=== PATIENT | female | born 1935 | race African-American/Black ===

== ENCOUNTER 2017-11-17 05:25 | Inpatient (IN) | payer OTHER ==
[2017-10-29 08:54] LABS: URINE BILIRUBIN NEGATIVE (Negative); URINE BLOOD NEGATIVE (Negative); URINE CLARITY CLEAR; URINE COLOR YELLOW; URINE GLUCOSE-RANDOM* NEGATIVE (Negative); URINE KETONES NEGATIVE (Negative); URINE NITRITE-REFLEX NEGATIVE (Negative); URINE PROTEIN (DIPSTICK) NEGATIVE (Negative); URINE UROBILINOGEN 0.2 E.U./dl (0.2-1.0)
[2017-10-29 08:56] LABS: URINE LEUKOCYTES-REFLEX 1+ (Negative)
[2017-10-29 08:59] LABS: HEMATOCRIT 36.5 % (37.0-47.0); HEMOGLOBIN 11.5 gm/dL (12.0-15.0); MCHC 31.6 g/dL (28.0-37.0); MCV 79.2 fL (80.0-100.0); RBC 4.61 mil/uL (4.20-5.00); RDW 15.3 % (10.5-14.5); WBC 6.6 thou/uL (4.0-11.0)
[2017-10-29 09:07] LABS: PROTIME 10.2 Seconds (9.3-11.4)
[2017-10-29 09:09] LABS: BACTERIA-REFLEX 1-9 Few /HPF (None Seen); CASTS None Seen /LPF (None Seen); CRYSTALS None Seen /LPF (None Seen); SQUAMOUS 0-3 Few /LPF (0-3); TRANSITIONAL EPITHEL CELL 0-3 Few /LPF (None Seen); URINE RBC None Seen /HPF (0-2); URINE WBC-REFLEX 0-5 Rare /HPF (0-5)
[2017-10-29 09:12] LABS: ALBUMIN 3.9 g/dL (3.4-5.0); CALCIUM 9.8 mg/dL (8.5-10.1); CREATININE 1.2 mg/dL (0.6-1.0)
[2017-11-17] VITALS (8 sets, daily range): BP systolic 118–152; BP diastolic 60–76
[~2017-11-17] VITALS: Ht 165.1 cm; Wt 76.7 kg
--- NOTE | ~2017-11-17 | O ---
[facility] [place] [address] OPERATIVE REPORT Name: CINDY NOEL Room #: 411-P [facility] IN M.R.#: [id number] Admission: 11/17/17 Attend Phys: Florin Degroot MD Discharge: Date of : 35 Report #: [id number] THIS REPORT FOR: //name// CC: Florin KRISHNAMURTHY DATE OF SERVICE: 11/17/2017 PREOPERATIVE DIAGNOSIS: End-stage degenerative arthritis, right hip. POSTOPERATIVE DIAGNOSIS: End-stage degenerative arthritis, right hip. PROCEDURE: Right total hip arthroplasty. SURGEON: Florin Degroot M.D. INDICATIONS: This frail, but still active and independent, 82-year-old female presents with progressive right hip pain. Clinical and radiographic exams reveal rather severe end-stage degenerative arthritis. She has not seen much improvement with conservative measures and the patient and family have elected to go ahead with right total hip arthroplasty. DESCRIPTION OF PROCEDURE: The patient was taken to the operating room, where she was placed under general anesthesia. Prophylactic intravenous antibiotics were administered. She was turned to the left lateral decubitus position. The left hip, thigh and leg were meticulously prepped and draped. A slightly curving posterolateral skin incision was made centered over the greater trochanter. This was carried through subcutaneous tissues and fascia exposing the posterior aspect of the hip joint. The short external rotators and capsule were taken down and tagged with several #1 Tevdek sutures. The hip was dislocated posteriorly and marked degenerative change on both the femoral head and acetabulum was noted. A femoral neck osteotomy was performed and the canal was opened with reamers and broaches. The Saravia and Nephew total hip system was utilized and the Synergy cemented femoral stem system was selected. A size-14 broach seemed to fit nicely and the calcar was trimmed down to an appropriate level. The trial broach was removed and attention directed to the acetabulum. Good exposure was established and the acetabulum was sequentially reamed, gradually advancing to a 54-mm reamer. The Saravia and Nephew 54-mm 3-hole acetabular shell was selected. This was inserted in alignment with her true acetabulum, placing this at about 40 degrees off of vertical and about 20 degrees of anteversion. It seated nicely and appeared to be secure when impacted into position. In addition, two screws were placed through the apex of the shell, which engaged periacetabular bone nicely and seemed to add well to stability. A 36-mm polyethylene liner was then inserted positioning the 20-degree elevated rim at about the 10 o'clock posterior position. The liner seated nicely and appeared to be secure. The canal was then once again prepared [address] [address] OPERATIVE REPORT Name: CINDY NOEL Room #: 411-P [facility] IN M.R.#: [id number] Admission: 11/17/17 Attend Phys: Florin Degroot MD Discharge: Date of : 35 Report #: [id number] with irrigation and a cement restrictor placed. Methyl methacralate cement was mixed and injected into the canal. The Saravia and Nephew Synergy size-14 femoral component was then inserted. This was positioned at about 20 degrees of anteversion. It seated nicely and appeared to be secure. Gentle pressure was applied while the cement hardened. At that point, a trial reduction was performed and a +4-mm neck length seemed most appropriate. This resulted in good hip, alignment, range of motion, stability and leg length. The permanent 36-mm cobalt chrome head with a +4-mm neck length was then selected. This component was brought into the field and impacted on to the Dent taper neck. It seated nicely and appeared to be secure. The hip was reduced and once again alignment, range of motion, stability and leg length appeared to be satisfactory. The capsule and short external rotators were then repaired back to bone using the #1 Tevdek sutures passed through drill holes in the greater trochanter. This resulted in additional overall stability. At this point, the wound was copiously irrigated. Good hemostasis was established. A single Hemovac was left in the wound exiting through a separate stab incision. The fascia was closed with multiple #1 Vicryl sutures. The adipose tissue and subcutaneous tissues were closed with multiple 0 Monocryl sutures. The skin was closed with skin tato. A sterile dressing was applied. The patient was awakened and returned to the recovery room in good condition. <ELECTRONICALLY SIGNED> By: Florin Degroot MD 11/18/17 0816 [id number] Florin Degroot MD /nt
[~2017-11-17 05:25] MED LIST: CALCIUM 500 +1 EAC5 PO; FISH OIL 1,001000 M2 PO; LIPITOR40 MG PO; LISINOPRIL20 MG PO; NORVASC10 MG PO; PRENATAL PO; SYNTHROID100 MCG PO; TYLENOL325 MG PO
[2017-11-18] VITALS: BP 136/63
[2017-11-18 04:00] VITALS: BP 131/65
[2017-11-18 06:16] LABS: ABSOLUTE NEUTROPHILS 6.4 thou/uL (1.4-8.2); BASOPHILS 0.3 % (0.0-2.0); HEMATOCRIT 25.6 % (37.0-47.0); HEMOGLOBIN 8.2 gm/dL (12.0-15.0); LYMPHOCYTES 11.8 % (24.0-44.0); MCH 25.3 pg (26.0-34.0); MCHC 32.3 g/dL (28.0-37.0); MCV 78.5 fL (80.0-100.0); MONOCYTES 10.5 % (1.0-8.0); PLATELET COUNT 151 thou/uL (150-400); POLYS 77.4 % (36.0-66.0); RBC 3.25 mil/uL (4.20-5.00); RDW 15.2 % (10.5-14.5); WBC 8.3 thou/uL (4.0-11.0)
[2017-11-18 06:39] LABS: CALCIUM 8.7 mg/dL (8.5-10.1); CREATININE 1.2 mg/dL (0.6-1.0); MAGNESIUM 1.7 mg/dL (1.8-2.4); POTASSIUM 4.1 mmol/L (3.5-5.1)
[2017-11-18 08:59] VITALS: BP 120/58
[2017-11-18 20:50] VITALS: BP 131/56
[2017-11-19 04:00] VITALS: BP 146/62
[2017-11-19 04:10] LABS: HEMATOCRIT 24.4 % (37.0-47.0); MCH 25.7 pg (26.0-34.0); MCHC 32.7 g/dL (28.0-37.0); MCV 78.7 fL (80.0-100.0); RBC 3.11 mil/uL (4.20-5.00); RDW 14.7 % (10.5-14.5)
[2017-11-19 08:00] VITALS: BP 137/56
[2017-11-19 12:47] VITALS: BP 115/57
[2017-11-19 20:00] VITALS: BP 106/53
[2017-11-20 06:36] LABS: HEMATOCRIT 25.6 % (37.0-47.0); HEMOGLOBIN 8.3 gm/dL (12.0-15.0); MCH 25.2 pg (26.0-34.0); MCHC 32.2 g/dL (28.0-37.0); MCV 78.1 fL (80.0-100.0); RBC 3.28 mil/uL (4.20-5.00); RDW 14.9 % (10.5-14.5); WBC 9.6 thou/uL (4.0-11.0)
[2017-11-20 07:27] VITALS: BP 141/54
[2017-11-20 10:16] VITALS: BP 141/54
[2017-11-20 14:22] LABS: URINE BILIRUBIN NEGATIVE (Negative); URINE BLOOD TRACE (Negative); URINE CLARITY CLEAR; URINE COLOR YELLOW; URINE GLUCOSE-RANDOM* NEGATIVE (Negative); URINE KETONES NEGATIVE (Negative); URINE LEUKOCYTES NEGATIVE (Negative); URINE NITRITE NEGATIVE (Negative); URINE PROTEIN (DIPSTICK) NEGATIVE (Negative); URINE SPECIFIC GRAVITY <= 1.005 (1.005-1.035); URINE UROBILINOGEN 0.2 E.U./dl (0.2-1.0)
== END 2017-11-20 15:51 | disposition home health service (06) | DRG 469 ==
LOC: PRE 05:25 → TBA 05:33 → 4N 05:33 → PRE 07:33 → 4N 10:28 → PRE 10:36 → SICU 11-19 16:06 → ENTRNSPT 11-20 15:02 → EDTRNSPTSTS 11-20 15:03 → SICU 11-20 15:51
PROVIDERS: Hospitalist; Nurse Practitioner; Orthopaedic Surgery
PROC: 0SR90J9 Replacement of Right Hip Joint with Synthetic Substitute, Cemented, Open Approach (ICD-10-PCS; principal; 2017-11-17)
DX: M16.11 Unilateral primary osteoarthritis, right hip (principal); E43 Unspecified severe protein-calorie malnutrition; I10 Essential (primary) hypertension; E03.9 Hypothyroidism, unspecified; E78.5 Hyperlipidemia, unspecified; Z91.018 Allergy to other foods; Z79.899 Other long term (current) drug therapy
CPT/HCPCS: 10790; 15002; 50010; 50101; 50382; 50414; 51057; 51130; 51225; 51412; 51771; 53000; 53367; 56521; 56525; 56527; 57103; 62110; 62900; 70005

== ENCOUNTER 2018-08-06 05:39 | Inpatient (IN) | payer OTHER ==
[2018-07-29 12:20] LABS: URINE BILIRUBIN NEGATIVE (Negative); URINE BLOOD NEGATIVE (Negative); URINE CLARITY SL CLOUDY; URINE COLOR YELLOW; URINE GLUCOSE-RANDOM* NEGATIVE (Negative); URINE KETONES NEGATIVE (Negative); URINE NITRITE-REFLEX NEGATIVE (Negative); URINE PROTEIN (DIPSTICK) NEGATIVE (Negative); URINE UROBILINOGEN 0.2 E.U./dl (0.2-1.0)
[2018-07-29 12:21] LABS: URINE LEUKOCYTES-REFLEX 1+ (Negative)
[2018-07-29 12:24] LABS: HEMATOCRIT 38.6 % (37.0-47.0); HEMOGLOBIN 12.1 gm/dL (12.0-15.0); MCH 24.8 pg (26.0-34.0); MCHC 31.2 g/dL (28.0-37.0); MCV 79.4 fL (80.0-100.0); RBC 4.86 mil/uL (4.20-5.00); RDW 15.6 % (10.5-14.5); WBC 7.4 thou/uL (4.0-11.0)
[2018-07-29 12:28] LABS: SQUAMOUS >10 Many /LPF (0-3)
[2018-07-29 12:29] LABS: ALBUMIN 4.1 g/dL (3.4-5.0); BACTERIA-REFLEX 1-9 Few /HPF (None Seen); CALCIUM 10.4 mg/dL (8.5-10.1); CREATININE 1.4 mg/dL (0.6-1.0); CRYSTALS None Seen /LPF (None Seen); HYALINE CASTS 0-3 Few /LPF (None Seen); POTASSIUM 4.1 mmol/L (3.5-5.1); URINE RBC None Seen /HPF (0-2); URINE WBC-REFLEX 6-15 Few /HPF (0-5)
[2018-07-29 12:32] LABS: PROTIME 10.3 Seconds (9.3-11.4)
[~2018-08-06] VITALS: Ht 165.1 cm; Wt 77.1 kg
--- NOTE | ~2018-08-06 | D ---
[facility] [place] [place] [address] DISCHARGE SUMMARY Name: CINDY NOEL Room #: 227-P [facility] IN M.R.#: [id number] Admission: 08/06/18 Attend Phys: Florin Degroot MD Discharge: 08/09/18 Date of : 35 Report #: [id number] THIS REPORT FOR: //name// CC: Florin KRISHNAMURTHY Physician staff DATE OF SERVICE: 08/09/2018 FINAL DIAGNOSIS: End-stage degenerative osteoarthritis, left hip. OPERATION PROCEDURES: Left total hip arthroplasty. HISTORY: This frail, but still active 82-year-old female presents with progressive left hip pain. She has had similar problems on the right side with good improvement after a total hip arthroplasty earlier this year. She and family have elected to go ahead with left total hip arthroplasty at this time. HOSPITAL COURSE: The patient was admitted and taken to the operating room. On 08/06/2018, she underwent left total hip arthroplasty, which she tolerated well. She was able to advance from IV analgesics to oral analgesics. She was able to make good progress with therapy and now seems safe and ambulates functionally well with some assistance. She has been able to resume a regular diet. She has resumed her regular routine medications. Her pain is now well controlled on occasional hydrocodone. She is on aspirin for anticoagulation. She and family feel she can manage nicely at home with their assistance as well as some visiting home health therapy. We will plan to go ahead with hospital discharge today on 08/09/2018. DISCHARGE MEDICATIONS: Include Synthroid 100 mcg daily, lisinopril 20 mg daily, amlodipine 10 mg daily, multivitamins once daily, fish oil 1000 mg daily, hydrocodone 5/325 one q.4-6h. p.r.n. for pain, aspirin 81 mg daily. DISCHARGE INSTRUCTIONS: She will return to my office in 1 week for routine followup and in 2 weeks for suture removal. <ELECTRONICALLY SIGNED> By: Florin Degroot MD 08/10/18 1150 [id number] Florin Degroot MD /nt
--- NOTE | ~2018-08-06 | O ---
[facility] [place] [address] OPERATIVE REPORT Name: CINDY NOEL Room #: 430-P [facility] IN M.R.#: [id number] Admission: 08/06/18 Attend Phys: Florin Degroot MD Discharge: Date of : 35 Report #: [id number] THIS REPORT FOR: //name// CC: Florin KRISHNAMURTHY Physician staff DATE OF SERVICE: 08/06/2018 PREOPERATIVE DIAGNOSIS: End-stage degenerative osteoarthritis, left hip. POSTOPERATIVE DIAGNOSIS: End-stage degenerative osteoarthritis, left hip. PROCEDURE: Left total hip arthroplasty. SURGEON: Florin Degroot MD INDICATIONS: This still active, independent 82-year-old female has progressive bilateral hip pain. She underwent right total hip arthroplasty earlier this year with good result. She returns with significant progressive left hip pain and is anxious to go ahead with total hip arthroplasty there as well. DESCRIPTION OF PROCEDURE: The patient was taken to the operating room where she was placed under general anesthesia. Prophylactic intravenous antibiotics were administered. She was turned to the right lateral decubitus position. The left hip and thigh were meticulously prepped and draped. A slightly curving skin incision was made centered over the greater trochanter extending to the posterior aspect of the hip joint. The short external rotators and capsule were taken down and tagged with several #1 Tevdek sutures. The hip was dislocated and marked degenerative change on both the femoral head and acetabulum was noted. A femoral neck osteotomy was performed and the canal was prepared using reamers and hand broaches. The Saravia and Nephew hip system was utilized and a size 13 cement stem seemed to be appropriate. The trial stem was removed and attention directed to the acetabulum. Good exposure was established and the acetabulum was sequentially reamed, gradually advancing to a 54 mm reamer. A Saravia and Nephew 54 mm fenestrated StikTite shell was then inserted. This was placed in position with her true acetabulum, positioning this in about 40-45 degrees off of vertical and about 20 degrees of anteversion. It seated nicely and appeared to be secure. In addition, 3 screws were placed through the apex of the shell engaging good periacetabular bone adding to stability. A 36-mm polyethylene liner was then inserted, placing the 20-degree elevated rim at about the 10 o'clock posterior position. It seated nicely and appeared to be secure. A cement restrictor was placed and methyl methacrylate cement was mixed and injected into the femoral canal. The Saravia and Nephew size 13 Synergy cemented stem was then inserted, placing this in about 15-20 degrees of anteversion. Excess cement was removed from around its margin. A trial [address] [address] OPERATIVE REPORT Name: CINDY NOEL Room #: 430-P [facility] IN M.R.#: [id number] Admission: 08/06/18 Attend Phys: Florin Degroot MD Discharge: Date of : 35 Report #: [id number] reduction was performed and a +0 neck length head resulted in satisfactory alignment, range of motion, stability and leg length. The permanent cobalt chrome 36 mm head with a 0 mm neck length was then inserted. This was impacted onto the Dent taper and appeared to be stable. The hip was reduced. Alignment, range of motion and stability were satisfactory. The short external rotators and capsule were then repaired back to bone using the #1 Tevdek sutures passed through small drill holes in the greater trochanter. This resulted in excellent overall hip stability. A single Hemovac was left in the wound exiting through a separate stab incision. The fascia was then closed using multiple #1 Vicryl sutures. The subcutaneous tissues were closed with 0 Monocryl and the skin was closed with skin tato. A sterile dressing was applied. The patient was then awakened and returned to recovery room in satisfactory condition. <ELECTRONICALLY SIGNED> By: Florin Degroot MD 08/06/18 1356 [id number] Florin Degroot MD /nt
[~2018-08-06 05:39] MED LIST changes: +SYNTHROID100 MC1 PO; -SYNTHROID100 MCG PO
[2018-08-06 06:44] VITALS: BP 139/61
[2018-08-06 11:36] VITALS: BP 128/55
[2018-08-06 13:13] VITALS: BP 122/65
[2018-08-06 20:00] VITALS: BP 135/50
[2018-08-07 00:06] VITALS: BP 118/59
[2018-08-07 05:32] VITALS: BP 135/55
[2018-08-07 06:04] LABS: ABSOLUTE NEUTROPHILS 7.2 thou/uL (1.4-8.2); BASOPHILS 0.2 % (0.0-2.0); EOSINOPHILS 0.1 % (0.0-3.0); HEMATOCRIT 25.5 % (37.0-47.0); HEMOGLOBIN 8.5 gm/dL (12.0-15.0); LYMPHOCYTES 13.5 % (24.0-44.0); MCH 26.2 pg (26.0-34.0); MCHC 33.4 g/dL (28.0-37.0); MCV 78.6 fL (80.0-100.0); PLATELET COUNT 155 thou/uL (150-400); POLYS 77.2 % (36.0-66.0); RBC 3.25 mil/uL (4.20-5.00); RDW 14.7 % (10.5-14.5); WBC 9.3 thou/uL (4.0-11.0)
[2018-08-07 06:28] LABS: CALCIUM 8.8 mg/dL (8.5-10.1); CREATININE 1.3 mg/dL (0.6-1.0); MAGNESIUM 1.7 mg/dL (1.8-2.4); POTASSIUM 4.5 mmol/L (3.5-5.1)
[2018-08-07 08:30] VITALS: BP 159/64
[2018-08-07 10:48] VITALS: BP 159/64
[2018-08-07 16:00] VITALS: BP 132/47
[2018-08-07 19:35] VITALS: BP 103/48
[2018-08-08 05:23] VITALS: BP 124/52
[2018-08-08 06:00] LABS: HEMATOCRIT 24.5 % (37.0-47.0); HEMOGLOBIN 8.1 gm/dL (12.0-15.0); MCH 25.9 pg (26.0-34.0); MCHC 32.9 g/dL (28.0-37.0); MCV 78.7 fL (80.0-100.0); RBC 3.11 mil/uL (4.20-5.00); RDW 15.2 % (10.5-14.5)
[2018-08-08 06:08] LABS: CALCIUM 8.6 mg/dL (8.5-10.1); CREATININE 1.3 mg/dL (0.6-1.0); MAGNESIUM 1.8 mg/dL (1.8-2.4); POTASSIUM 4.1 mmol/L (3.5-5.1)
[2018-08-08 07:35] VITALS: BP 108/52
[2018-08-08 15:00] VITALS: BP 135/52
[2018-08-09 07:42] VITALS: BP 114/62
[2018-08-09 08:48] LABS: HEMATOCRIT 23.4 % (37.0-47.0); HEMOGLOBIN 7.7 gm/dL (12.0-15.0); MCH 26.1 pg (26.0-34.0); MCV 79.1 fL (80.0-100.0); RBC 2.96 mil/uL (4.20-5.00); RDW 15.2 % (10.5-14.5); WBC 8.6 thou/uL (4.0-11.0)
[2018-08-09 09:09] VITALS: BP 114/62
[2018-08-09] MEDS ORDERED: ACCUPRIL40 MG PO (12:43)
[2018-08-09] MEDS ORDERED: HOME MEDICATION PO (12:43)
[2018-08-09] MEDS ORDERED: SYNTHROID100 MC1 PO (12:43)
[2018-08-09] MEDS ORDERED: SENNA PLUS TAB1 EACH PO (12:43)
[2018-08-09] MEDS ORDERED: XARELTO10 MG PO (12:43)
[2018-08-09] MEDS ORDERED: AMLODIPINE BESY10 MG PO (12:43)
== END 2018-08-09 16:14 | disposition home health service (06) | DRG 469 ==
LOC: PRE 05:39 → TBA 05:41 → 4E 05:41 → PRE 13:31 → SICU 08-08 14:37
PROVIDERS: Internal Medicine; Nurse Practitioner; Orthopaedic Surgery
PROC: 0SRB019 Replacement of Left Hip Joint with Metal Synthetic Substitute, Cemented, Open Approach (ICD-10-PCS; principal; 2018-08-06)
DX: M16.12 Unilateral primary osteoarthritis, left hip (principal); E43 Unspecified severe protein-calorie malnutrition; I10 Essential (primary) hypertension; E03.9 Hypothyroidism, unspecified; Z96.641 Presence of right artificial hip joint; K59.00 Constipation, unspecified; Z98.42 Cataract extraction status, left eye; Z98.41 Cataract extraction status, right eye; Z79.82 Long term (current) use of aspirin; Z79.899 Other long term (current) drug therapy; Z91.018 Allergy to other foods
CPT/HCPCS: 10783; 15002; 50010; 50101; 50382; 50414; 51057; 51130; 51225; 51412; 51771; 53000; 53367; 56521; 56525; 56527; 57095; 62110; 62900; 70005